=== PATIENT | male | born 1930 | race Caucasian/White ===

== ENCOUNTER 2017-03-10 20:39 | Emergency (ER) | payer MEDICARE, OTHER ==
[2017-03-10] MEDS ORDERED: LORazepam 1 MG TABLET PO ONE ×2 (21:14→22:48)
[2017-03-10 21:17] LABS: BASOPHILS % 0.5 (0.0-1.5); EOSINOPHILS % 2.1 % (0.0-6.8); MEAN CORPUSCULAR VOLUME 88.5 fl (80.0-100.0); MONOCYTES % 6.5 % (0.0-11.0); NEUTROPHILS # 4.2 # k/uL (1.4-7.7)
[2017-03-10 21:27] LABS: APPEARANCE,URINE Clear (CLEAR); COLOR,URINE Yellow (YELLOW); OCCULT BLOOD,URINE 2+ (NEGATIVE); UROBILINOGEN URINE 0.2 Eu (0.2-1.0)
[2017-03-10 21:34] LABS: eGFR (African) > 60; eGFR (Non-African) 51
--- NOTE | 2017-03-10 21:46 | ED Physician Documentation ---
Psychological Disorders - HISTORIAN Historian: patient, paramedics, other (Sari Brown) - HPI Stated Complaint: upset, change in behaviors Chief Complaint: Psychological Disorder Onset: hours (24-48 hours) Related To: other (arguement with tonae) Further Comments: yes (86 year old male patient brought in via EMS for psychiatric evaluation. Patient has had increased agitation and agreession for the past 24-48 hours. States his fiancee gave back his ring today. Patient left [facility] 3 times today on foot. Staff reports multiple episodes of yelling, signed out AMA. Patient was recenting admitted to [facility] for inpatient psychiatric care 02/09-.) - ROS CONST: none NEURO/PSYCH: none EYES/ENT: none CVS/RESP: none GI/: denies: nausea, vomiting - PAST HX Psychiatric problems: depression, psychiatric problems DVT/PE Risk Factors: leg swelling (Left knee replacement) Lung, Cardiac, DM: A-Fib, AMI, COPD, diabetes Type 2, hypertension, other ( Bladder CA, CHF, hematuria, ) Surgical History: other (right total knee) Allergies/Adverse Reactions: Allergies Allergy/AdvReac Type Severity Reaction Status Date / Time NSAIDS (Non-Steroidal Allergy Unknown Verified 07/05/16 10:59 Anti-Inflamma Home Medications: Ambulatory Orders Medication Instructions Recorded Acetaminophen [Tylenol] 650 mg 03/10/17 Albuterol Sulfate [Albuterol 03/10/17 Sulfate] Apixaban [Eliquis] 60 mg PO BID 03/10/17 Apixaban [Eliquis] 60 mg PO BID 03/10/17 Docusate Sodium [Colace] 100 mg PO DAILY 03/10/17 Duloxetine HCl [Cymbalta] 20 mg PO 03/10/17 Famotidine [Pepcid] 20 mg PO 0700 03/10/17 Finasteride [Proscar] 5 mg PO HS 03/10/17 Folic Acid [Folvite] 1 mg 03/10/17 Furosemide [Furosemide] 40 mg 03/10/17 Gabapentin [Gabapentin] 03/10/17 Guaifenesin [Mucinex] 600 mg PO 03/10/17 Levothyroxine Sodium 03/10/17 [Levothyroxine Sodium] Risperidone [Risperdal] 2 mg PO 03/10/17 Tamsulosin HCl [Tamsulosin HCl] 03/10/17 Thiamine HCl [Vitamin B-1] 100 mg PO 03/10/17 Tramadol HCl [Ultram] 03/10/17 Trazodone HCl [Desyrel] 100 mg PO 03/10/17 - Social HX Smoking History: non-smoker Marital Status: single Drug Use: other (history of ETOH abuse) - Family HX Family HX: denies: mental illness - VITAL SIGNS Vital Signs: Vital Signs Temp Pulse Resp BP Pulse Ox 98.2 F 80 18 148/76 95 03/10/17 23:06 03/10/17 23:06 03/10/17 23:06 03/10/17 23:06 03/10/17 23:06 - REVIEWED ASSESSMENTS Nursing Assessment Reviewed: Yes Vitals Reviewed: Yes Progress - Progress Progress: Records reviewed from [facility]. 2145 Call from Sari Brown. [facility] will accept patient on Tuesday. 0 Labs reviewed, patient does not qualify for inpatient or observation admission at this time. Calm and cooperative while in ER. Took 2mg of Ativan. Patient agrees to return to [facility] and go to bed. Will discharge with prn ativan order. Medically clear for inpatient psychiatric admission tomorrow. - EKG/XRAY/CT EKG: rhythm (Afib) ED Results Lab/Radiology - Lab Results Lab Results: Lab Results 03/10/17 03/10/17 03/10/17 21:23 21:11 21:11 WBC 5.80 K/ul K/ul (4.00-12.00) RBC 4.23 M/ul M/ul (3.90-5.20) Hgb 11.9 g/dL L g/dL (12.0-18.0) Hct 37.4 % % (37.0-53.0) MCV 88.5 fl fl (80.0-100.0) MCH 28.0 pg pg (28.0-34.0) MCHC 31.7 g/dL g/dL (30.0-36.0) RDW 14.3 % % (11.3-14.3) Plt Count 182 K/mm3 K/mm3 (130-400) Neut % (Auto) 72.5 % % (39.0-79.0) Lymph % (Auto) 17.0 % % (16.0-50.0) [place] % (Auto) 6.5 % % (0.0-11.0) Eos % (Auto) 2.1 % % (0.0-6.8) Baso % (Auto) 0.5 (0.0-1.5) Neut # 4.2 # k/uL # k/uL (1.4-7.7) Lymph # 1.0 # k/uL # k/uL (0.6-4.0) [place] # 0.4 # k/uL # k/uL (0.0-0.9) Eos # 0.1 # k/uL # k/uL (0.0-0.6) Baso # 0.0 # k/uL # k/uL (0.0-0.5) Reactive Lymphs % 1.4 % % (0.0-5.0) Reactive Lymphs # 0.1 # k/uL # k/uL (0.0-0.8) Sodium 140 mmol/L mmol/L (136-145) Potassium 4.7 mmol/L mmol/L (3.5-5.0) Chloride 100 mmol/L mmol/L (98-110) Carbon Dioxide 36 mmol/L H mmol/L (20-32) BUN 28 mg/dL H mg/dL (10-26) Creatinine 1.4 mg/dL mg/dL (0.4-1.5) Estimated Creat Clear 51 Est GFR ( Amer) > 60 (60 - ) Est GFR (Non-Af Amer) 51 L (60 - ) Glucose 159 mg/dL H mg/dL (70-99) Calcium 9.5 mg/dL mg/dL (8.5-10.5) Total Bilirubin 0.4 mg/dL mg/dL (0.2-1.2) AST 15 U/L U/L (0-41) ALT 12 U/L U/L (0-45) Alkaline Phosphatase 118 U/L H U/L (46-116) Total Protein 7.3 g/dL g/dL (6.0-8.5) Albumin 4.4 g/dL g/dL (3.0-5.5) Urine Color Yellow (YELLOW) Urine Appearance Clear (CLEAR) Urine pH 6.0 (5.0 - 8.0) Ur Specific [place] 1.025 (1.010-1.030) Urine Protein 2+ mg/dL H mg/dL (NEGATIVE) Urine Ketones Negative mg/dL mg/dL (NEGATIVE) Urine Occult Blood 2+ H (NEGATIVE) Urine Nitrite Negative (NEGATIVE) Urine Bilirubin Negative (NEGATIVE) Urine Urobilinogen 0.2 Eu Eu (0.2-1.0) Ur Leukocyte Esterase Negative (NEGATIVE) Urine Glucose Negative mg/dL mg/dL (NEGATIVE) - Orders Orders: ED Orders Category Date Time Status Arterial Blood Gas 1T Care 03/10/17 21:46 Active CBC/PLATELET/DIFF Stat Lab 03/10/17 21:11 Completed CMP Stat Lab 03/10/17 21:11 Completed UA W/MICRO IF INDICATED Stat Lab 03/10/17 21:23 Completed LORazepam [Ativan] Med 03/10/17 21:14 Discontinued 2 mg PO NOW ONE LORazepam [Ativan] Med 03/10/17 22:48 Discontinued 4 mg PO NOW ONE EKG WITH COMPARISON Stat Ther 03/10/17 20:43 Ordered Psych Physical Exam - Physical Exam General Appearance: mild distress Eyes: PERRL Suicide Attempts: denies Orientation: nml x3 Cranial Nerves: CN's intact as tested Sensory, Motor: nml motor response, nml sensory response, nml reflexes, nml gait Respiratory: no resp distress, chest non-tender, breath sounds normal CVS: heart sounds normal, equal pulses, no murmur, no gallop, PMI nml, no JVD, no friction rub, irregularly irregular rhy Abdomen: non-tender, no organomegaly, nml bowel sounds, no distention Skin: normal color, warm/dry, NR, INT, PAL, DR Extremities: non-tender, normal range of motion, no evidence of injury, no edema , J, GENERAL EXPEDITOR Discharge Clincal Impression: Agitation, Medical clearance for psychiatric admission Referrals: Faiza Romo MD [Primary Care Provider] - 2 Days Additional Instructions: Patient medically cleared for psychiatric admission Ativan 1-2 mg every 6 hours as needed for anxiety and agitation Home Medications: Ambulatory Orders Acetaminophen [Tylenol] 650 mg 03/10/17 Albuterol Sulfate [Albuterol Sulfate] 03/10/17 Apixaban [Eliquis] 60 mg PO BID 03/10/17 Apixaban [Eliquis] 60 mg PO BID 03/10/17 Docusate Sodium [Colace] 100 mg PO DAILY 03/10/17 Duloxetine HCl [Cymbalta] 20 mg PO 03/10/17 Famotidine [Pepcid] 20 mg PO 0700 03/10/17 Finasteride [Proscar] 5 mg PO HS 03/10/17 Folic Acid [Folvite] 1 mg 03/10/17 Furosemide [Furosemide] 40 mg 03/10/17 Gabapentin [Gabapentin] 03/10/17 Guaifenesin [Mucinex] 600 mg PO 03/10/17 Levothyroxine Sodium [Levothyroxine Sodium] 03/10/17 Risperidone [Risperdal] 2 mg PO 03/10/17 Tamsulosin HCl [Tamsulosin HCl] 03/10/17 Thiamine HCl [Vitamin B-1] 100 mg PO 03/10/17 Tramadol HCl [Ultram] 03/10/17 Trazodone HCl [Desyrel] 100 mg PO 03/10/17 Condition: Stable Decision to Admit: NO Decision Time: 23:00
[2017-03-10 23:09] VITALS: BP 148/76
[2017-03-11 06:45] LABS: ABG PCO2 56 mmhg (35-45); ABG PH > 7.61 (7.35-7.45); ABG PO2 65 mmhg (80-100)
[2017-03-11 06:46] LABS: ABG BASE EXCESS 7.3 (-2 - +2); ABG OXYGEN SATURATION 92 % (93-100)
== END 2017-03-10 23:04 ==
LOC: ED 20:39
DX: R45.1 Restlessness and agitation (principal)
CPT/HCPCS: 36600; 80053; 81002; 82803; 85025; 99283

== ENCOUNTER 2017-03-18 22:47 | Emergency (ER) | payer MEDICARE, OTHER ==
[2017-03-18] MEDS ORDERED: METOPROLOL TARTRATE 50 MG TABLET ONE (23:05)
[2017-03-18] MEDS ORDERED: METOPROLOL TARTRATE 50 MG TABLET PO ONE (23:06)
--- NOTE | 2017-03-18 23:56 | ED Physician Documentation ---
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 Pt takes gabapentin 300 mg po qd according to old medical record. Pt c/o burning pain in both feet. Pt has elevated bp on presentation.) - ROS CONST: no problems EYES/ENT: none CVS/RESP: none GI/: none MS/SKIN/LYMPH: other (burning pain in feet b/l) NEURO/PSYCH: other (burning pain in feet) - PAST HX Past History: A-Fib, other (CAD w cardiac stent, HTN, HLD, COPD with home O2 prn ; [place]A; GI bleed; PUD; depression; Chronic renal insufficiency; DM) Surgeries/Procedures: other (total knee replacement) Allergies/Adverse Reactions: Allergies Allergy/AdvReac Type Severity Reaction Status Date / Time NSAIDS (Non-Steroidal Allergy Unknown Verified 03/18/17 23:36 Anti-Inflamma Home Medications: Ambulatory Orders Medication Instructions Recorded Acetaminophen [Tylenol] 650 mg 03/10/17 Albuterol Sulfate [Albuterol 03/10/17 Sulfate] Apixaban [Eliquis] 60 mg PO BID 03/10/17 Apixaban [Eliquis] 60 mg PO BID 03/10/17 Docusate Sodium [Colace] 100 mg PO DAILY 03/10/17 Duloxetine HCl [Cymbalta] 20 mg PO 03/10/17 Famotidine [Pepcid] 20 mg PO 0700 03/10/17 Finasteride [Proscar] 5 mg PO HS 03/10/17 Folic Acid [Folvite] 1 mg 03/10/17 Furosemide [Furosemide] 40 mg 03/10/17 Gabapentin [Gabapentin] 03/10/17 Guaifenesin [Mucinex] 600 mg PO 03/10/17 Levothyroxine Sodium 03/10/17 [Levothyroxine Sodium] Risperidone [Risperdal] 2 mg PO 03/10/17 Tamsulosin HCl [Tamsulosin HCl] 03/10/17 Thiamine HCl [Vitamin B-1] 100 mg PO 03/10/17 Tramadol HCl [Ultram] 03/10/17 Trazodone HCl [Desyrel] 100 mg PO 03/10/17 - SOCIAL HX Smoking History: quit greater than 1 year - FAMILY HX Family History: Yes (Mother: HTN, aged 84. Father: CAD aged 79) - VITAL SIGNS Vital Signs: Vital Signs Temp Pulse Resp BP Pulse Ox 97.9 F 86 20 195/83 97 03/18/17 22:47 03/18/17 22:47 03/18/17 22:47 03/18/17 22:47 03/18/17 22:47 - REVIEWED ASSESSMENTS Nursing Assessment Reviewed: Yes Vitals Reviewed: Yes Progress - Progress Progress: Metoprolol 50 mg po in ER BP improved f/u pcp for possible modification of gabapentin regimen, review of HTN. foot pain improved in ER with no pain meds given. ED Results Lab/Radiology - Orders Orders: ED Orders Category Date Time Status Metoprolol Tartrate [Lopressor] Med 03/18/17 23:05 Discontinued 50 mg .ROUTE .STK-MED ONE Metoprolol Tartrate [Lopressor] Med 03/18/17 23:06 Discontinued 50 mg PO NOW ONE General Adult Physical Exam - PHYSICAL EXAM GENERAL APPEARANCE: mild distress NECK: normal inspection, supple RESPIRATORY: no resp distress, chest non-tender, other (distant breath sounds) CVS: reg rate & rhythm, heart sounds normal ABDOMEN: soft, no organomegaly, normal bowel sounds BACK: normal inspection SKIN: warm/dry, normal color EXTREMITIES: no edema, other (LE's without edema/swelling, no apparet injury) NEURO: motor nml, other (baseline mental status) Discharge Clincal Impression: neuropathic foot pain Referrals: Faiza Romo MD [Primary Care Provider] - Home Medications: Ambulatory Orders Acetaminophen [Tylenol] 650 mg 03/10/17 Albuterol Sulfate [Albuterol Sulfate] 03/10/17 Apixaban [Eliquis] 60 mg PO BID 03/10/17 Apixaban [Eliquis] 60 mg PO BID 03/10/17 Docusate Sodium [Colace] 100 mg PO DAILY 03/10/17 Duloxetine HCl [Cymbalta] 20 mg PO 03/10/17 Famotidine [Pepcid] 20 mg PO 0700 03/10/17 Finasteride [Proscar] 5 mg PO HS 03/10/17 Folic Acid [Folvite] 1 mg 03/10/17 Furosemide [Furosemide] 40 mg 03/10/17 Gabapentin [Gabapentin] 03/10/17 Guaifenesin [Mucinex] 600 mg PO 03/10/17 Levothyroxine Sodium [Levothyroxine Sodium] 03/10/17 Risperidone [Risperdal] 2 mg PO 03/10/17 Tamsulosin HCl [Tamsulosin HCl] 03/10/17 Thiamine HCl [Vitamin B-1] 100 mg PO 03/10/17 Tramadol HCl [Ultram] 03/10/17 Trazodone HCl [Desyrel] 100 mg PO 03/10/17 Condition: Good Disposition: 01 HOME, SELF-CARE Decision to Admit: NO Decision Time: 00:06
[2017-03-19 00:11] VITALS: BP 144/58
== END 2017-03-18 23:57 | disposition home or self-care (01) ==
LOC: ED 22:47
DX: E11.42 Type 2 diabetes mellitus with diabetic polyneuropathy (principal)
CPT/HCPCS: 99283

== ENCOUNTER 2017-03-22 14:07 | Outpatient (CLI) | payer MEDICARE, OTHER ==
[2017-03-19 00:11] VITALS: BP 144/58
== END 2017-03-22 14:10 ==
LOC: LABRHC 14:07
PROVIDERS: ATTEND Family Medicine
DX: E11.9 Type 2 diabetes mellitus without complications (principal)
CPT/HCPCS: 83036

== ENCOUNTER 2017-05-16 16:10 | Outpatient (CLI) | payer MEDICARE, OTHER ==
[2017-03-19 00:11] VITALS: BP 144/58
--- NOTE | 2017-05-16 18:28 | Diagnostic Imaging Report ---
[facility] [address] [facility] [address] Report Submission Date: May 16, 2017 4:37:22 PM CDT Patient Study Name: HONORIO MEDEL Date: May 16, 2017 4:12:57 PM CDT Modality Type: CR Gender: M Description: CHEST : 34 Institution: [facility] Physician: DORIAN BRIZUELA Examination: PA and lateral chest. History: Evaluate lung mcbride. Findings: PA lateral chest demonstrate a normal cardiac and mediastinal silhouette. No focal infiltrate. No effusion. Apical emphysematous changes. No blunting of the costophrenic margins. Osseous structures are appropriate for age. Impression: Mild emphysematous changes. No acute process. Electronically signed on May 16, 2017 4:37:22 PM CDT by: Rodrick BATES
== END 2017-05-16 16:30 ==
LOC: RAD 16:10
PROVIDERS: ATTEND Family Medicine
DX: I48.91 Unspecified atrial fibrillation (principal); N18.9 Chronic kidney disease, unspecified; J44.9 Chronic obstructive pulmonary disease, unspecified; K92.2 Gastrointestinal hemorrhage, unspecified; I25.10 Atherosclerotic heart disease of native coronary artery without angina pectoris; I10 Essential (primary) hypertension; E78.5 Hyperlipidemia, unspecified; F32.9 Major depressive disorder, single episode, unspecified; E11.9 Type 2 diabetes mellitus without complications; K27.9 Peptic ulcer, site unspecified, unspecified as acute or chronic, without hemorrhage or perforation; G47.30 Sleep apnea, unspecified
CPT/HCPCS: 71020

== ENCOUNTER 2017-07-21 09:23 | Outpatient (CLI) | payer MEDICARE, OTHER ==
[2017-03-19 00:11] VITALS: BP 144/58
--- NOTE | 2017-07-21 11:06 | Diagnostic Imaging Report ---
ALISIA BILLINGSLEY [facility] [address] [facility] [address] [place], [place]. [address] Report Submission Date: Jul 21, 2017 10:40:47 AM CDT Patient Study Name: HONORIO MEDEL Date: Jul 21, 2017 9:48:54 AM CDT Modality Type: CR Gender: M Description: CHEST : 32 Institution: [facility] Physician: ALISIA BILLINGSLEY Examination: PA and lateral chest. History: Evaluate lung mcbride. Comparison exam: 16 May 2017 Findings: PA lateral chest demonstrate a normal cardiac and mediastinal silhouette. Vascular calcifications involving the aortic arch. Emphysematous changes with apical bulla: stable the prior study. No focal infiltrate. No effusion. No blunting of the costophrenic margins. Osseous structures are appropriate for age. Impression: Stable emphysematous changes. No acute pulmonary process. Electronically signed on Jul 21, 2017 10:40:47 AM CDT by: Rodrick BATES
== END 2017-07-21 09:24 ==
LOC: LAB 09:23
PROVIDERS: ATTEND Family Medicine
DX: R05 Cough (principal); R09.89 Other specified symptoms and signs involving the circulatory and respiratory systems
CPT/HCPCS: 71020

== ENCOUNTER 2017-08-04 07:36 | Emergency (ER) | payer MEDICARE, OTHER ==
--- NOTE | 2017-08-04 08:22 | ED Physician Documentation ---
General Adult - HISTORIAN Historian: patient - HPI Stated Complaint: diff breathing Chief Complaint: General Adult Onset: days ago Timing: still present Severity: moderate Further Comments: yes (Pt is an 87 [facility], recently tx'd for pneumonia, who had a cough and increased sob this am with SpO2=87% RA. Pt had been tx'd with Z-luis a, which he finished on 07/26/17. Pt was given a Duoneb HFN by EMS and placed on 5L O2 with SpO2=95%.) - ROS CONST: no problems CVS/RESP: shortness of breath, cough. denies: chest pain GI/: none MS/SKIN/LYMPH: none - PAST HX Past History: other (Afib, CKD, bladder cancer, COPD, GI bleed, CAD, HTN, HLD, Depression, DMII, PUD, ELMIRA, Psychosis.) Allergies/Adverse Reactions: Allergies Allergy/AdvReac Type Severity Reaction Status Date / Time NSAIDS (Non-Steroidal Allergy Unknown Verified 03/18/17 23:36 Anti-Inflamma sildenafil citrate Allergy Verified 08/04/17 07:54 [From Viagra] Home Medications: Ambulatory Orders Medication Instructions Recorded Finasteride [Proscar] 5 mg PO HS 03/10/17 Acetaminophen [Tylenol] 650 mg PO Q4 PRN 08/04/17 Cetirizine HCl [Zyrtec] 10 mg PO QDAY 08/04/17 DULoxetine HCL [Cymbalta] 30 mg PO BID 08/04/17 Hypromellose [Nature's Tears] 15 ml OP Q1H PRN 08/04/17 Levothyroxine Sodium [Unithroid] 88 mcg PO QDAY 08/04/17 Loratadine [Claritin] 10 mg PO QDAY 08/04/17 Mag Hydrox/Al Hydrox/Simeth 30 ml PO QDAY PRN 08/04/17 [Mylanta] Magnesium Hydroxide [Milk of 2,400 mg PO QDAY PRN 08/04/17 Magnesia] Polyethylene Glycol 3350 [Miralax] 17 gm PO 1100 08/04/17 - SOCIAL HX Smoking History: non-smoker - FAMILY HX Family History: No - VITAL SIGNS Vital Signs: Vital Signs Temp Pulse Resp BP Pulse Ox 99.0 F 102 H 20 112/61 97 08/04/17 07:37 08/04/17 07:46 08/04/17 07:37 08/04/17 07:37 08/04/17 07:46 - REVIEWED ASSESSMENTS Nursing Assessment Reviewed: Yes Vitals Reviewed: Yes Progress - Progress Progress: ABG pH 7.44; pCO2 41; pO2 43; HCO3 27.8; SaO2 80. Elevated HP=2670 CKMB=12.8 Pt had been mobile yesterday. Cause of Rhabdomyolysis not clear. Pt has hx HLD , but does not have Lipitor or similar med on med list. Elevated pro-DPA=8457.2 Pt needs IVF for Rhabdo, but has CHF with elevated pro-BNP (? consider dialysis) CXR: RLL pneumoia/effusion. WBC wnl. Blood cx - pending. U/a - (tea colored; wbc 10-25; rbc 50-99) Levaquin 500 mg IV in ER. transfer to [facility], Dr. Elaine. - EKG/XRAY/CT EKG: NSR (HR=92; LAD (pt had been in afib on monitor upon arrival, but converted to NSR)) XRAY: chest (Right lower lung infiltrate/effusion.) ED Results Lab/Radiology - Orders Orders: ED Orders Category Date Time Status Arterial Blood Gas 1T Care 08/04/17 07:48 Active Continuous EKG monitoring Q30M Care 08/04/17 07:46 Active Continuous Pulse Oximetry Q30M Care 08/04/17 07:46 Active CHEST 1 VIEW [RAD] Stat Exams 08/04/17 07:46 Taken BLOOD CULTURE Stat Lab 08/04/17 Ordered BNP [NT-proBNP] Stat Lab 08/04/17 Ordered CBC/PLATELET/DIFF Routine Lab 08/04/17 07:46 Ordered CMP Routine Lab 08/04/17 07:46 Ordered CREATINE KINASE Routine Lab 08/04/17 07:46 Ordered TROPONIN I (cTnI) Stat Lab 08/04/17 Ordered Oxygen Daily Oxygen 08/04/17 08:00 Ordered EKG WITH COMPARISON Stat Ther 08/04/17 07:46 Ordered General Adult Physical Exam - PHYSICAL EXAM GENERAL APPEARANCE: mild distress EENT: pharynx normal, dry mucous membranes NECK: normal inspection, supple RESPIRATORY: wheezes, rales (R lower lung field) CVS: irregularly irregular rhy (pt later reverted to NSR), other (distant heart sounds) ABDOMEN: soft, no organomegaly, normal bowel sounds, other (umbilical hernia) BACK: normal inspection, no CVA tenderness SKIN: warm/dry, other (very early decubitus irritation/ulcers, tender) EXTREMITIES: non-tender, normal range of motion, no evidence of injury NEURO: motor nml, sensation nml, other (baseline mental status) Discharge Clincal Impression: COPD (chronic obstructive pulmonary disease) Qualifiers: COPD type: unspecified COPD Qualified Code(s): J44.9 - Chronic obstructive pulmonary disease, unspecified Rhabdomyolysis Qualifiers: Rhabdomyolysis type: non-traumatic Qualified Code(s): M62.82 - Rhabdomyolysis CHF (congestive heart failure) Qualifiers: Congestive heart failure type: unspecified congestive heart failure type Congestive heart failure chronicity: unspecified congestive heart failure chronicity Qualified Code(s): I50.9 - Heart failure, unspecified Bladder cancer Qualifiers: Bladder location: unspecified site Qualified Code(s): C67.9 - Malignant neoplasm of bladder, unspecified Pneumonia Qualifiers: Pneumonia type: due to unspecified organism Laterality: right Lung location: lower lobe of lung Qualified Code(s): J18.1 - Lobar pneumonia, unspecified organism Referrals: Faiza Romo MD [Primary Care Provider] - Home Medications: Ambulatory Orders Finasteride [Proscar] 5 mg PO HS 03/10/17 Acetaminophen [Tylenol] 650 mg PO Q4 PRN 08/04/17 Cetirizine HCl [Zyrtec] 10 mg PO QDAY 08/04/17 DULoxetine HCL [Cymbalta] 30 mg PO BID 08/04/17 Hypromellose [Nature's Tears] 15 ml OP Q1H PRN 08/04/17 Levothyroxine Sodium [Unithroid] 88 mcg PO QDAY 08/04/17 Loratadine [Claritin] 10 mg PO QDAY 08/04/17 Mag Hydrox/Al Hydrox/Simeth [Mylanta] 30 ml PO QDAY PRN 08/04/17 Magnesium Hydroxide [Milk of Magnesia] 2,400 mg PO QDAY PRN 08/04/17 Polyethylene Glycol 3350 [Miralax] 17 gm PO 1100 08/04/17 Condition: Stable Disposition: 02 XFER SHT-TRM HOSP Decision to Admit: NO Decision Time: 10:05
[2017-08-04 08:34] LABS: BASOPHILS % 0.5 (0.0-1.5); EOSINOPHILS % 0.1 % (0.0-6.8); MEAN CORPUSCULAR VOLUME 90.9 fl (80.0-100.0); MONOCYTES % 6.8 % (0.0-11.0); NEUTROPHILS # 9.2 # k/uL (1.4-7.7)
[2017-08-04 09:27] LABS: APPEARANCE,URINE Cloudy (CLEAR); COLOR,URINE Amber (YELLOW); OCCULT BLOOD,URINE 3+ (NEGATIVE); PH URINE 5.5 (5.0 - 8.0)
[2017-08-04] MEDS ORDERED: LEVOFLOXACIN 500MG/D5W 100ML 100 ML IV ONE (10:04)
[2017-08-04] MEDS: LEVOFLOXACIN 500MG/D5W 100ML 500 MG in PREMIX BAG 1 BAG IV ONE (10:20)
[2017-08-04 10:56] VITALS: BP 129/44
--- NOTE | 2017-08-04 13:43 | Diagnostic Imaging Report ---
ALIN LAROSE [facility] [address] [facility] [address] [address] Report Submission Date: Aug 04, 2017 8:16:21 AM CDT Patient Study Name: HONORIO MEDEL Date: Aug 04, 2017 7:50:14 AM CDT Modality Type: CR Gender: M Description: CHEST : 34 Institution: [facility] Physician: ALIN LAROSE Examination: Plain film chest History: Chest discomfort. Cough Comparison exam: 21 July 2017 Findings: Single view of the chest demonstrates a normal cardiac silhouette. Mild tortuous possibly of the thoracic aorta. Vascular calcification aortic arch. Hazy infiltrate right lower lung. Costophrenic margin with hazy infiltrate. Left hemithorax without infiltrate or blunting of the costophrenic margin. Osseous structures are appropriate for age. Impression: Right lower lung infiltrate/effusion. Electronically signed on Aug 04, 2017 8:16:21 AM CDT by: Rodrick BATES
== END 2017-08-04 10:30 | disposition short-term general hospital (02) ==
LOC: ED 07:36
DX: J44.9 Chronic obstructive pulmonary disease, unspecified (principal); M62.82 Rhabdomyolysis; I50.9 Heart failure, unspecified; C67.9 Malignant neoplasm of bladder, unspecified; J18.1 Lobar pneumonia, unspecified organism
CPT/HCPCS: 36415; 71010; 80053; 81002; 82550; 82553; 83880; 84484; 85025; 87040; 87086; 93005; J1956; 96372; 99284

== ENCOUNTER → 2017-09-16 | Outpatient (CLI) | payer MEDICARE, OTHER ==
[2017-03-19 00:11] VITALS: BP 144/58
--- NOTE | 2017-09-16 10:59 | CONSULTATION REPORT ---
REFERRING PHYSICIAN: Dr. Faiza Romo CONSULTING PHYSICIAN: Juanito Malone MD Dear Dr. Romo: REASON FOR CONSULT: Thank you for referring Sheng Cordero for an evaluation of joint pain. HISTORY OF PRESENT ILLNESS: He is a rather difficult historian. He is 87 years old. He is a senior living resident who has had pain in his hands and he points to the knuckles. He does not know how long it has been there but it has been quite a while. He also has some discomfort in his feet. He denied discomfort in the wrists, elbows, shoulders, knees or hips. He denies any other associated symptoms. He has noted maybe some numbness in his right hand and certainly some loss of use and difficulty with feeding and activities of daily living. PAST MEDICAL HISTORY: 1. Bronchitis. 2. Cystitis. 3. Rhabdomyolysis. 4. Alzheimer's. 5. Atrial fibrillation. 6. Chronic renal insufficiency. 7. BPH. 8. Bladder cancer. 9. Obstructive sleep apnea. 10. COPD. 11. Type 2 diabetes. 12. Hypothyroidism. 13. Hyperlipidemia. 14. History of peptic ulcer disease. 15. Hypertension. 16. Coronary artery disease. PRESENT MEDICATIONS: 1. Gabapentin 200 mg 3 times a day. 2. Seroquel 25 mg twice a day. 3. Budesonide 0.5mg 2 mL b.i.d. 4. Diltiazem XR 180 mg daily. 5. Finasteride 5 mg daily. 6. Humalog insulin. 7. Risperidone 1 mg twice a day. 8. Duloxetine 30 mg at bedtime. 9. Tramadol 50 mg one-half tablet every 6 hours as needed. 10. Colace. 11. Cyanocobalamin 1000 mg. 12. Eliquis 2.5 mg daily. 13. Levothyroxine 88 mcg daily. 14. Metoprolol XL 25 mg daily. 15. Tylenol 325 mg 2 tablets every 4 hours p.r.n. pain. ALLERGIES: 1. Nonsteroidal's 2. Viagra. FAMILY HISTORY: Mother had arthritis. He cannot tell me what type. REVIEW OF SYSTEMS: He denies any problems with headaches, jaw pain, pain with chewing, tongue pain , dry eyes or dry mouth. He has had no chest pain, shortness of breath, cough, or wheezing. No nausea, vomiting, or diarrhea. He has not noted any skin rashes or nodules. PHYSICAL EXAMINATION: Vital Signs: Weight: 190. T: 96.2, R: 20, heart rate of 60, BP: 140/63. HEENT: Sclerae are anicteric. Conjunctivae are pink. No stomatitis or glossitis. Normal male pattern baldness. No scalp lesions. No temporal artery or occipital artery tenderness. LUNGS: Clear with no crackles or wheezing. HEART: Regular rhythm. I did not appreciate a murmur. ABDOMEN: Soft and nontender. VASCULAR: He has got trace edema of his lower extremities. PERIPHERAL JOINTS: DIPs are unremarkable. PIPs are slightly tender. He has tenderness at MCPs with fullness, mainly #2 and #3 bilaterally. He has loss of flexion and extension in both wrists. He has got some ventral swelling of the right wrist and what appears to be a positive Tinel. Elbows have good range of motion. Shoulders have limited abduction. Knees with no effusions. No tenderness. No significant pain in rotation of the hips. MTPs were slightly tender. Nail and Skin Exam: Unremarkable. IMPRESSION AND PLAN: 1. Polyarthritis. The picture appears to be that of rheumatoid arthritis, however, pseudogout and gout can also present with this picture. I doubt a connective tissue disease such as lupus or other. We will keep note of the patient's chronic renal insufficiency with the last creatinine of 1.7. We will repeat a urinalysis, where his previous showed blood and protein. 2. 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 Probably associated with his arthropathy. I am putting him on prednisone 5 mg twice a day. I will see him back in 4 weeks. We will obtain lab and x-rays today consisting of x-rays of the hands, wrists, and feet. Labs with sedimentation rate, CRP, rheumatoid factor, CCP antibody, SUNNY, uric acid level, and a repeat UA. Thank you very much for the opportunity to participate in the care of your patients. Best regards, cc: Dr. Faiza Romo [facility]
== END ==
LOC: RHEU 09:45
PROVIDERS: ATTEND Internal Medicine
DX: M13.0 Polyarthritis, unspecified (principal); G56.01 Carpal tunnel syndrome, right upper limb
CPT/HCPCS: 99203; G0463

== ENCOUNTER → 2017-09-19 | Outpatient (CLI) | payer MEDICARE, OTHER ==
[2017-09-19 11:24] LABS: APPEARANCE,URINE Clear (CLEAR); COLOR,URINE Yellow (YELLOW); OCCULT BLOOD,URINE 3+ (NEGATIVE); PH URINE 6.5 (5.0 - 8.0)
[2017-09-19 11:32] LABS: AMORPHOUS SEDIMENT,UR FEW (NEGATIVE)
--- NOTE | 2017-09-19 13:05 | Diagnostic Imaging Report ---
KYMBERLY RANDLE [facility] [address] [facility] [address] [address] Report Submission Date: Sep 19, 2017 12:28:30 PM CDT Patient Study Name: HONORIO MEDEL Date: Sep 19, 2017 11:41:18 AM CDT Modality Type: CR Gender: M Description: UPPER EXTREMITY : 34 Institution: [facility] Physician: KYMBERLY RANDLE Examination: Plain film hands History: Arthritis Comparison exams: None available Findings: 3 views the right and left hands demonstrates generalized osteopenia. Extensive articular degenerative changes most pronounced involving the 1st carpal metacarpal articulation. Radiocarpal degenerative changes. No overt fracture. Impression: Extensive/advanced degenerative changes without fracture. Electronically signed on Sep 19, 2017 12:28:30 PM CDT by: Rodrick BATES
--- NOTE | 2017-09-19 13:06 | Diagnostic Imaging Report ---
KYMBERLY RANDLE [facility] [address] [facility] [address] Report Submission Date: Sep 19, 2017 12:24:39 PM CDT Patient Study Name: HONORIO MEDEL Date: Sep 19, 2017 11:52:39 AM CDT Modality Type: CR Gender: M Description: LOWER EXTREMITY : 34 Institution: [facility] Physician: KYMBERLY RANDLE Examination: Plain film feet History: Arthritis Findings: 3 views of the left and right foot demonstrates articular degenerative changes. No evidence for fracture line. Small right posterior calcaneal spur. Large soft tissue calcification projecting posterior to the left Achilles tendon. Scattered vascular calcifications. Impression: Articular degenerative changes. No fracture. Electronically signed on Sep 19, 2017 12:24:39 PM CDT by: Rodrick BATES
[2017-09-21 08:21] LABS: ANTI-PR3 (C-ANCA) <4.0 EU/mL (<4.0)
== END ==
LOC: LAB 10:55
PROVIDERS: ATTEND Internal Medicine
DX: M13.0 Polyarthritis, unspecified (principal)
CPT/HCPCS: 36415; 81002; 83516; 84550; 85651; 86038; 86140; 86200; 86431

== ENCOUNTER 2017-10-14 14:50 | Outpatient (CLI) | payer MEDICARE, OTHER ==
--- NOTE | 2017-10-17 14:42 | OP Clinic Progress Note ---
Dear Dr. Romo: REASON FOR VISIT: I had the pleasure of seeing Sheng Cordero in follow up. As you recall on his last visit, I put him on prednisone 5 mg twice a day. He has noted significant improvement. He is now able to grasp and use his fingers for fine manipulation. He has less difficulty getting in and out of a chair. He has tolerated the prednisone well. His past medical and surgical history and medications are reviewed and are unchanged. REVIEW OF SYSTEMS: Again, he feels better. No fevers, chills, sweats, chest pain, shortness of breath, cough or wheezing. PHYSICAL EXAMINATION: VITAL SIGNS: T: 96.6, R: 20, heart rate of 64, BP: 160/75. HEENT: Unremarkable. No oral thrush. LUNGS: Clear. HEART: Regular rate and rhythm. ABDOMEN: Soft. EXTREMITIES: No peripheral edema. JOINTS: DIPs, PIPs, MCPs, and wrists are no longer tender. There is no significant synovitis. Still some fullness at the left 3rd MCP. Caustic Liquor Maker strength is improved. It is 4/5, up from maybe 2/5 to 3/5. Wrist and elbows are nontender. Knees, ankles, and feet are nontender. He has no significant difficulty getting out of a chair and using his walker. LABORATORY DATA: Review of his labs, his sedimentation rate was elevated to 34. CRP elevated to 1.3. Uric acid was normal at 4.5. Rheumatoid factor was less than 10. CCP antibody was 1.1. SUNNY was negative. CCP antibody, again, was negative and antineutrophil cytoplasmic antibody was negative. IMAGING STUDIES: I personally reviewed the x-rays of his hands and feet. He had some periarticular osteopenia, some marginal osteopenia at the MTPs and MCPs, and right and left 3rd MCPs are narrowed but no definite erosions. IMPRESSION: 1. Seronegative rheumatoid arthritis of multiple sites. 2. Chronic renal insufficiency. 3. Abnormal urinalysis from September 19 with again 2+ protein and 3+ blood. PLAN: 1. I am decreasing his prednisone to 2.5 mg twice a day. If he does well, would manage him on that alone. If he should flare, would consider the use of Plaquenil 200 mg twice a day. 2. I am avoiding nonsteroidal's or methotrexate. 3. I understand he is being seen by a heel sorter. Thank you very much for the opportunity to take care of your patient. Best regards, cc: Dr. Faiza Romo [facility]
== END 2017-10-14 14:52 ==
LOC: RHEU 14:50
PROVIDERS: ATTEND Internal Medicine
DX: M06.09 Rheumatoid arthritis without rheumatoid factor, multiple sites (principal); N18.9 Chronic kidney disease, unspecified
CPT/HCPCS: 99213; G0463

== ENCOUNTER 2018-03-17 | Outpatient (CLI) | payer MEDICARE, OTHER ==
--- NOTE | 2018-03-20 10:44 | OP Clinic Progress Note ---
REASON FOR VISIT: Sheng Cordero returns for follow up of seronegative rheumatoid arthritis. He had his prednisone decreased from 2.5 mg twice a day to 2.5 mg daily as of March 05 and he is doing well. He is occasionally having some pain in his right wrist mainly with use, but he denies any significant joint swelling or morning stiffness. Since I last saw him, he was admitted and evaluated for an episode of confusion and this about November 15, 2017. That has improved. Otherwise, no new medical problems. The rest of the systems reviewed, he presently complains of no fevers, chills, sweats, chest pain, shortness of breath, cough, wheezing, nausea, vomiting, diarrhea, or significant joint pain. PHYSICAL EXAMINATION: VITAL SIGNS: BP: 170/78, T: 96.3, R: 18, heart rate 59. HEENT: Grossly unremarkable. LUNGS: Clear. HEART: Regular rhythm. ABDOMEN: Soft. VASCULAR: Shows no edema or cyanosis. JOINTS: DIPs, PIPs, and MCPS are unremarkable. The right wrist appears a little swollen. Some decreased flexion and extension but no tenderness or apparent significant synovitis. Compactor Driver strength remains about 4/5. Elbows, shoulders, knees, ankles, and feet are nontender. Let us recall at presentation, his sedimentation rate was 34. Rheumatoid factor and CCP antibodies were negative. X-rays did not show any erosions but did have joint space narrowing at the left and right 3rd MCPs, as well as periarticular osteopenia. IMPRESSION: 1. Seronegative rheumatoid arthritis of multiple sites. 2. Other contributing factors is his history of chronic heart failure (CHF). 3. Hypertension. 4. Chronic renal insufficiency. PLAN: 1. We will continue his present dose of prednisone. 2. I will see him back in 6 months. He should come sooner if he should worsen. If he does so, we will institute Plaquenil. I am again avoiding methotrexate in this gentleman. cc: Dr. Faiza BATES
== END 2018-03-17 10:53 ==
CPT/HCPCS: 99214; G0463

== ENCOUNTER 2018-07-20 05:14 | Emergency (ER) | payer MEDICARE, OTHER ==
--- NOTE | 2018-07-20 05:22 | ED Physician Documentation ---
Fall - HISTORIAN Historian: patient - HPI Stated Complaint: fall lac to ear and head Chief Complaint: Fall Onset: just prior to arrival Where: home Context: slipped r: mild Associated Symptoms:: no loss of consciousness Location of Pain/Injury: head Injury to Left Extremity: knee (abrasion ) Further Comments: yes (He was a fall pt per EMS and he did hit his head possibly on the bed. No LOC per report. Per pt nothing hurts at this time. He is on an antibiotic for recent URI. He has no complaints currently) - ROS CONST: no problems NEURO: denies: dizziness MS/SKIN/LYMPH: denies: weakness, numbness EYES/ENT: none CVS/RESP: none - PAST HX Past History: diabetes Type 2, COPD, other (hypothyroidism, depression, anxiety, bipolar, on Eliquis (no note on JAN of history - Nurse at [place] is not sure of reason pt is on this medication) ) - SOCIAL HX Smoking History: quit greater than 1 year Alcohol Use: none Drug Use: none - FAMILY HX Family History: none - VITAL SIGNS Vital Signs: Vital Signs Temp Pulse Resp BP Pulse Ox 197/68 11/15/17 22:26 - REVIEWED ASSESSMENTS Nursing Assessment Reviewed: Yes Vitals Reviewed: Yes <Delia Fishman - Last Filed: 07/20/18 07:05> - VITAL SIGNS Vital Signs: Vital Signs Temp Pulse Resp BP Pulse Ox 70 22 180/79 96 07/20/18 05:15 07/20/18 05:15 07/20/18 05:15 07/20/18 05:15 <FRANNY DAVIS - Last Filed: 07/20/18 07:30> - PAST HX Allergies/Adverse Reactions: Allergies Allergy/AdvReac Type Severity Reaction Status Date / Time NSAIDS (Non-Steroidal Allergy Unknown Verified 07/20/18 05:39 Anti-Inflamma sildenafil citrate Allergy Verified 07/20/18 05:39 [From Viagra] Home Medications: Ambulatory Orders Medication Instructions Recorded Finasteride [Proscar] 5 mg PO HS 03/10/17 Acetaminophen [Tylenol] 650 mg PO Q4 PRN 08/04/17 Levothyroxine Sodium [Unithroid] 88 mcg PO QDAY 08/04/17 Mag Hydrox/Aluminum Hyd/Simeth 30 ml PO QDAY PRN 08/04/17 [Mylanta] Magnesium Hydroxide [Milk of 2,400 mg PO QDAY PRN 08/04/17 Magnesia] Cyanocobalamin [Vitamin B-12] 1,000 mcg PO QDAY 11/15/17 Diltiazem HCl [Cardizem Cd] 180 mg PO DAILY 11/15/17 Levalbuterol HCl 0.63 mg IH Q4 PRN 11/15/17 Metoprolol Succinate [Toprol XL] 25 mg PO QDAY 11/15/17 Tiotropium [place] [Spiriva] 1 inh IH QD 11/15/17 Tramadol HCl [Ultram] 25 - 50 mg PO Q6 PRN 11/15/17 predniSONE [Prednisone] 2.5 mg PO BID 11/15/17 Azithromycin [Zithromax] 500 mg PO DAILY 07/20/18 Furosemide [Lasix] 40 mg PO DAILY 07/20/18 Levofloxacin [Levaquin] 500 mg PO DAILY 07/20/18 QUEtiapine FUMARATE [Seroquel] 25 mg PO AM 07/20/18 Quetiapine Fumarate [Seroquel] 50 mg PO PM 07/20/18 Procedures Wound Location: head Wound's Depth, Shape: superficial, linear Wound Explored: clean Wound Repaired With: pablito (4 pablito ) <Delia Fishman - Last Filed: 07/20/18 07:05> Progress: laceration to face, 2.5 cm, anterior to ear. Sub Q. 2.5 cc 0.5% bupivacaine local infiltration. Repaired with #2 4-0 nylon sutures. Topical abx applied. <FRANNY DAVIS - Last Filed: 07/20/18 07:30> Progress - Progress Progress: 0645: discussed case with Dr Romo - he was started on antibiotics for pneumonia yesterday DG 0700: Report and care turned to Franny Davis [facility] DG <Delia Fishman - Last Filed: 07/20/18 07:05> ED Results Lab/Radiology - Radiology Radiology Impressions: Examination: Portable chest History: Evaluate lungs. COUGH TODAY (Hx) Comparison exam: None available for direct review. Findings: Single view of the chest demonstrates a normal cardiac and mediastinal silhouette. Tortuous aorta with vascular calcifications involving the aortic arch. Right lower lung parenchymal haziness. No blunting of the costophrenic margins. Osseous structures are appropriate for age. Impression: Mild right lower lung infiltrate. No effusion. Electronically signed on Jul 20, 2018 6:02:44 AM CDT by: Rodrick Burgos Examination: CT head without contrast History: FALL THIS MORNING HIT RIGHT EAR AND BACK OF HEAD. LARGE LACERATION INSIDE RIGHT EAR. (Hx) Comparison exam: None available Technique: Noncontrast head CT protocol. Findings: Ventricles and sulci are prominent, though consistent for patient age. Cerebrocerebellar parenchyma demonstrates periventricular low attenuation consistent with small vessel disease. No evidence for parenchymal hemorrhage. No evidence for mass or mass effect. No midline shift. No extra axial fluid collections. Partial visualization of the paranasal sinuses, mastoid air cells, orbits, skull and scalp without gross irregularity. Impression: Age related changes. No acute parenchymal process. No hemorrhage. Electronically signed on Jul 20, 2018 6:01:15 AM CDT by: Rodrick Burgos <Delia Fishman - Last Filed: 07/20/18 07:05> - Lab Results Lab Results: Lab Results 07/20/18 07/20/18 07/20/18 06:45 06:45 06:45 WBC 9.40 K/ul K/ul (4.00-12.00) RBC 4.06 M/ul M/ul (3.90-5.20) Hgb 12.2 g/dL g/dL (12.0-18.0) Hct 37.6 % % (37.0-53.0) MCV 92.6 fl fl (80.0-100.0) MCH 30.0 pg pg (28.0-34.0) MCHC 32.4 g/dL g/dL (30.0-36.0) RDW 13.6 % % (11.3-14.3) Plt Count 174 K/mm3 K/mm3 (130-400) Neut % (Auto) 78.6 % % (39.0-79.0) Lymph % (Auto) 13.9 % L % (16.0-50.0) Door % (Auto) 5.5 % % (0.0-11.0) Eos % (Auto) 0.5 % % (0.0-6.8) Baso % (Auto) 0.4 (0.0-1.5) Neut # (Auto) 7.4 # k/uL # k/uL (1.4-7.7) Lymph # (Auto) 1.3 # k/uL # k/uL (0.6-4.0) Door # (Auto) 0.5 # k/uL # k/uL (0.0-0.9) Eos # (Auto) 0.0 # k/uL # k/uL (0.0-0.6) Baso # (Auto) 0.0 # k/uL # k/uL (0.0-0.5) Reactive Lymphs % 1.1 % % (0.0-5.0) Reactive Lymphs # 0.1 # k/uL # k/uL (0.0-0.8) PT 11.2 Seconds Seconds (9.4-11.6) INR 1.07 (0.9-1.2) Sodium 144 mmol/L mmol/L (136-145) Potassium 4.6 mmol/L mmol/L (3.5-5.1) Chloride 104 mmol/L mmol/L (98-107) Carbon Dioxide 29 mmol/L mmol/L (22-30) BUN 35 mg/dL H mg/dL (9-20) Creatinine 1.50 mg/dL H mg/dL (0.66-1.25) Estimated Creat Clear 52 Est GFR ( Amer) 57 L (60 - ) Est GFR (Non-Af Amer) 47 L (60 - ) Glucose 100 mg/dL mg/dL (74-106) Calcium 9.0 mg/dL mg/dL (8.4-10.2) Total Bilirubin 1.1 mg/dL mg/dL (0.2-1.3) AST 47 U/L H U/L (15-46) ALT 28 U/L U/L (13-69) Alkaline Phosphatase 81 U/L U/L (38-126) Total Protein 6.6 g/dL g/dL (6.3-8.2) Albumin 3.9 g/dL g/dL (3.5-5.0) - Orders Orders: ED Orders Category Date Time Status Cleanse with NS and Chlorhexid 1T Care 07/20/18 05:[address] IV Lock 1T Care 07/20/18 05:22 Active CHEST 1VIEW [RAD] Stat Exams 07/20/[address] BRAIN W/O CONTRAST Stat Exams 07/20/18 Completed CBC/PLATELET/DIFF Stat Lab 07/20/18 06:45 Completed CMP Stat Lab 07/20/18 06:45 Completed PTINR [PT-INR] Routine Lab 07/20/18 06:45 Completed Bupivacaine HCl/Pf [Marcaine 0.5%] Med 07/20/18 07:09 Discontinued 50 mg IJ NOW ONE Bupivacaine HCl/Pf [Marcaine 0.5%] Med 07/20/18 07:10 Discontinued 50 mg IV .STK-MED ONE Ipratropium/Albuterol Sulfate [Duoneb] Med 07/20/18 05:25 Discontinued 3 ml NEB NOW ONE <FRANNY DAVIS - Last Filed: 07/20/18 07:30> Fall Physical Exam - Physical Exam General Appearance: no acute distress, alert. 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 Head: non-tender, no swelling, trauma (lac on posterior head approx 1 cm ) Neck: non-tender, painless ROM Eye: CAESAR ENT: nml external inspection (laceration to right ear under lobe and bruise and swelling inside ear - lobe is intact ), no dental injury, no oral injury, airway nml Resp/CVS: chest non-tender, heart sounds nml, wheezes Abdomen: soft, normal bowel sounds, no distension, non-tender Neuro: oriented x3, CN's nml as tested, sensation nml Skin: color nml, other (abrasion down entire back ) Back: normal inspection Joint: joints nml, nml ROM - Airam Coma Score Eyes Open: Spontaneous Speech: Oriented <Delia Fishman - Last Filed: 07/20/18 07:05> Discharge <Delia Fishman - Last Filed: 07/20/18 07:05> Decision to Admit: NO Decision Time: 07:30 <FRANNY DAVIS - Last Filed: 07/20/18 07:30> Clincal Impression: Fall Qualifiers: Encounter type: initial encounter Qualified Code(s): W19.XXXA - Unspecified fall, initial encounter Laceration of head Qualifiers: Encounter type: initial encounter Location of open wound of head: unspecified part of head Foreign body presence: without foreign body Qualified Code(s): S01.91XA - Laceration without foreign body of unspecified part of head, initial encounter Laceration of face Qualifiers: Encounter type: initial encounter Qualified Code(s): S01.81XA - Laceration without foreign body of other part of head, initial encounter Referrals: Faiza Romo MD [Primary Care Provider] - 2 Days Additional Instructions: Sutures and pablito can be removed in 7-10 days. Condition: Fair Disposition: 01 HOME, SELF-CARE
[2018-07-20] MEDS: IPRATROPIUM/ALBUTEROL SULFATE 3 ML AMPUL.NEB NEB ONE (06:00)
--- NOTE | 2018-07-20 06:03 | Diagnostic Imaging Report ---
HAWK TURCIOS [facility] [address] [facility] [address] [place], [place]. [address] Report Submission Date: Jul 20, 2018 6:02:44 AM CDT Patient Study Name: HONORIO MEDEL Date: Jul 20, 2018 5:36:00 AM CDT Modality Type: DX Gender: M Description: CHEST : 34 Institution: [facility] Physician: HAWK TURCIOS Examination: Portable chest History: Evaluate lungs. COUGH TODAY (Hx) Comparison exam: None available for direct review. Findings: Single view of the chest demonstrates a normal cardiac and mediastinal silhouette. Tortuous aorta with vascular calcifications involving the aortic arch. Right lower lung parenchymal haziness. No blunting of the costophrenic margins. Osseous structures are appropriate for age. Impression: Mild right lower lung infiltrate. No effusion. Electronically signed on Jul 20, 2018 6:02:44 AM CDT by: Rodrick BATES
--- NOTE | 2018-07-20 06:03 | Diagnostic Imaging Report ---
HAWK TURCIOS [facility] [address] [facility] [address] [place], [place]. [address] Report Submission Date: Jul 20, 2018 6:01:15 AM CDT Patient Study Name: HONORIO MEDEL Date: Jul 20, 2018 5:34:00 AM CDT Modality Type: CT Gender: M Description: CT BRAIN W/O CONTRAST : 34 Institution: [facility] Physician: HAWK TURCIOS Examination: CT head without contrast History: FALL THIS MORNING HIT RIGHT EAR AND BACK OF HEAD. LARGE LACERATION INSIDE RIGHT EAR. (Hx) Comparison exam: None available Technique: Noncontrast head CT protocol. Findings: Ventricles and sulci are prominent, though consistent for patient age. Cerebrocerebellar parenchyma demonstrates periventricular low attenuation consistent with small vessel disease. No evidence for parenchymal hemorrhage. No evidence for mass or mass effect. No midline shift. No extra axial fluid collections. Partial visualization of the paranasal sinuses, mastoid air cells, orbits, skull and scalp without gross irregularity. Impression: Age related changes. No acute parenchymal process. No hemorrhage. Electronically signed on Jul 20, 2018 6:01:15 AM CDT by: Rodrick BATES
[2018-07-20 06:54] LABS: BASOPHILS % 0.4 (0.0-1.5); EOSINOPHILS % 0.5 % (0.0-6.8); MONOCYTES % 5.5 % (0.0-11.0); NEUTROPHILS # 7.4 # k/uL (1.4-7.7)
[2018-07-20 07:03] LABS: MEAN CORPUSCULAR VOLUME 92.6 fl (80.0-100.0)
[2018-07-20] MEDS: BUPIVACAINE HCL/PF 5 MG/ML 10ML VIAL IV ONE (07:49)
[2018-07-20] MEDS: BUPIVACAINE HCL/PF 5 MG/ML 10ML VIAL IJ ONE (07:49)
[2018-07-20] MEDS: NEOMYCIN/BACITRACIN/POLYMYXINB 1 EACH OINT.PACK TP ONE (07:49)
[2018-07-20 07:54] VITALS: BP 129/44
== END 2018-07-20 08:15 | disposition home or self-care (01) ==
LOC: ED 05:14
DX: S01.91XA Laceration without foreign body of unspecified part of head, initial encounter (principal); S01.81XA Laceration without foreign body of other part of head, initial encounter; W19.XXXA Unspecified fall, initial encounter; Y92.018 Other place in single-family (private) house as the place of occurrence of the external cause; Y93.9 Activity, unspecified; Y99.9 Unspecified external cause status; R05 Cough
CPT/HCPCS: 70450; 71045; 80053; 85025; 85610; J3490; 12001; 12011; 94640; 96372; 99284; S1016

== ENCOUNTER 2018-07-27 13:02 | Emergency (ER) | payer MEDICARE, OTHER ==
--- NOTE | 2018-07-27 13:13 | ED Physician Documentation ---
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 Pt is on Seroquel. 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 Pt was treated for pneumonia earlier this month.) - ROS CONST: other (anxiety) EYES/ENT: none CVS/RESP: shortness of breath (transient, 2nd to anxiety) GI/: none MS/SKIN/LYMPH: none - PAST HX Past History: other (anxiety, depression, COPD, DM, GERD, HLD, HTN, thyroid d/o, hx bladder cancer, ibrahima) Allergies/Adverse Reactions: Allergies Allergy/AdvReac Type Severity Reaction Status Date / Time NSAIDS (Non-Steroidal Allergy Unknown Verified 07/20/18 05:39 Anti-Inflamma sildenafil citrate Allergy Verified 07/20/18 05:39 [From Viagra] Home Medications: Ambulatory Orders Medication Instructions Recorded Finasteride [Proscar] 5 mg PO HS 03/10/17 Acetaminophen [Tylenol] 650 mg PO Q4 PRN 08/04/17 Levothyroxine Sodium [Unithroid] 88 mcg PO QDAY 08/04/17 Mag Hydrox/Aluminum Hyd/Simeth 30 ml PO QDAY PRN 08/04/17 [Mylanta] Magnesium Hydroxide [Milk of 2,400 mg PO QDAY PRN 08/04/17 Magnesia] Cyanocobalamin [Vitamin B-12] 1,000 mcg PO QDAY 11/15/17 Diltiazem HCl [Cardizem Cd] 180 mg PO DAILY 11/15/17 Levalbuterol HCl 0.63 mg IH Q4 PRN 11/15/17 Metoprolol Succinate [Toprol XL] 25 mg PO QDAY 11/15/17 Tiotropium [place] [Spiriva] 1 inh IH QD 11/15/17 Tramadol HCl [Ultram] 25 - 50 mg PO Q6 PRN 11/15/17 predniSONE [Prednisone] 2.5 mg PO BID 11/15/17 Azithromycin [Zithromax] 500 mg PO DAILY 07/20/18 Furosemide [Lasix] 40 mg PO DAILY 07/20/18 Levofloxacin [Levaquin] 500 mg PO DAILY 07/20/18 QUEtiapine FUMARATE [Seroquel] 25 mg PO AM 07/20/18 Quetiapine Fumarate [Seroquel] 50 mg PO PM 07/20/18 - SOCIAL HX Smoking History: non-smoker - FAMILY HX Family History: No (unk) - VITAL SIGNS Vital Signs: Vital Signs Temp Pulse Resp BP Pulse Ox 129/44 07/20/18 07:52 - REVIEWED ASSESSMENTS Nursing Assessment Reviewed: Yes Vitals Reviewed: Yes Progress - Progress Progress: Ativan 1 mg IV NS 500 cc IVF d/c instructions: Rx Ativan 1 mg. Take one by mouth every 8 hours as needed for anxiety. Follow up with primary provider for refills, medication evaluation ED Results Lab/Radiology - Orders Orders: ED Orders Category Date Time Status LORazepam [Ativan] Med 07/27/18 13:11 Once 1 mg IVP NOW ONE General Adult Physical Exam - PHYSICAL EXAM GENERAL APPEARANCE: moderate distress (anxious) EENT: dry mucous membranes NECK: normal inspection, supple RESPIRATORY: no resp distress, chest non-tender, breath sounds normal CVS: reg rate & rhythm, heart sounds normal ABDOMEN: soft, no organomegaly, normal bowel sounds BACK: normal inspection SKIN: warm/dry, normal color EXTREMITIES: non-tender, normal range of motion, no evidence of injury NEURO: oriented X3 (baseline ms, anxious), motor nml, sensation nml Discharge Clincal Impression: Anxiety Referrals: Faiza Romo MD [Primary Care Provider] - Disposition: 04 [facility] Decision to Admit: NO Decision Time: 14:39
[2018-07-27] MEDS: LORazepam 2 MG/ML VIAL IVP ONE (13:23)
[2018-07-27] MEDS: 0.9 % SODIUM CHLORIDE 500 ML IV ONE (13:23)
[2018-07-27 13:44] LABS: BASOPHILS % 0.3 (0.0-1.5); EOSINOPHILS % 1.6 % (0.0-6.8); MEAN CORPUSCULAR HEMOGLOBIN 29.7 pg (28.0-34.0); MEAN CORPUSCULAR VOLUME 90.8 fl (80.0-100.0); MONOCYTES % 4.4 % (0.0-11.0); NEUTROPHILS # 6.6 # k/uL (1.4-7.7)
[2018-07-27 14:28] LABS: eGFR (Non-African) 51
[2018-07-27 14:50] VITALS: BP 129/44
== END 2018-07-27 14:50 ==
LOC: ED 13:02
DX: F41.9 Anxiety disorder, unspecified (principal)
CPT/HCPCS: 80053; 83880; 85025; J2060; J7060; 96365; 96375; 99284